=== PATIENT | male | born 1960 | race Caucasian/White ===

== ENCOUNTER 2022-10-29 20:29 | Emergency (ER) | payer OTHER ==
[~2022-10-29] VITALS: Ht 167.6 cm; Wt 67.6 kg
[2022-10-29 21:24] LABS: BASOPHILS # (AUTO) 0.1 K/uL (0.0-0.2); BASOPHILS % (AUTO) 0.7 % (0.0-2.0); EOSINOPHILS % (AUTO) 2.9 % (0.0-6.0); HEMATOCRIT 39 % (39-51); HEMOGLOBIN 13.3 g/dL (13.5-17.5); LYMPHOCYTES # (AUTO) 2.7 K/uL (0.8-4.8); LYMPHOCYTES % (AUTO) 33.4 % (20.0-44.0); MEAN CORPUSCULAR HGB CONC 34 g/dl (31.0-36.0); MEAN CORPUSCULAR VOLUME 103 fL (80-96); MONOCYTES # (AUTO) 0.9 K/uL (0.1-1.30); MONOCYTES % (AUTO) 11.2 % (2.0-12.0); NEUTROPHILS # (AUTO) 4.3 K/uL (1.8-8.9); NEUTROPHILS % (AUTO) 51.8 % (43.0-81.0); PLATELET COUNT (AUTO) 224 K/uL (150-450); RED BLOOD CELL COUNT(AUTO) 3.83 MIL/uL (4.5-6.0); WHITE BLOOD COUNT (AUTO) 8.2 K/uL (4.3-11.0)
[2022-10-29 21:36] LABS: CALCIUM, SERUM 8.7 mg/dL (8.5-10.1); CARBON DIOXIDE 31 mmol/L (21-32); CHLORIDE 97 mmol/L (98-107); CREATININE 1.1 mg/dL (0.6-1.3); GLUCOSE 106 mg/dL (74-106); POTASSIUM 3.9 mmol/L (3.5-5.1); SODIUM SERUM 138 mmol/L (136-145); UREA NITROGEN, BLOOD 23 mg/dL (7-18)
--- NOTE | 2022-10-29 22:11 | NUR ---
CATIA, FRIEND: [phone]
--- NOTE | 2022-10-30 00:04 | NUR ---
covid swab sent
--- NOTE | 2022-10-30 00:28 | NUR ---
PT WAS ACCEPTED TO [facility] UNDER DR VILA. REPORT # [phone] PER [facility] WILL NURSES' REGISTRY DIRECTOR PT AROUND 0130 PT WILL BE GOING TO THE ER
--- NOTE | 2022-10-30 01:29 | NUR ---
REPORT GIVEN TO CARLTON REHMAN AT [facility] [place]
--- NOTE | 2022-10-30 01:45 | NUR ---
[facility] TRANSPORTATION AT BEDSIDE FOR PATIENT TRANSPORT.
[2022-10-30 01:46] VITALS: BP 96/58
== END 2022-10-30 01:47 | disposition short-term general hospital (02) ==
LOC: ER 20:30
DX: R55 Syncope and collapse (principal); F10.10 Alcohol abuse, uncomplicated; Z20.822 Contact with and (suspected) exposure to COVID-19; Z96.649 Presence of unspecified artificial hip joint; Z95.810 Presence of automatic (implantable) cardiac defibrillator; I44.7 Left bundle-branch block, unspecified; I11.0 Hypertensive heart disease with heart failure; I50.9 Heart failure, unspecified; Z88.0 Allergy status to penicillin; Z88.6 Allergy status to analgesic agent; Z91.041 Radiographic dye allergy status; D75.89 Other specified diseases of blood and blood-forming organs
CPT/HCPCS: 99285; 70450; 71045; 93005; 85025; 80048; 83735; 36415; 84484 ×2; 87426; C9803